=== PATIENT | female | born 1990 | race Caucasian/White ===

== ENCOUNTER 2018-07-24 15:23 | Emergency (ER) | payer OTHER ==
[~2018-07-24] VITALS: Ht 160 cm; Wt 77.1 kg
[2018-07-24 15:35] VITALS: BP 133/75
--- NOTE | 2018-07-24 15:41 | NUR ---
28 Y FEMALE BIB SELF C/O ITCHING ALL OVER THE BODY SINCE YESTERDAY MORNING. DESCRIBES THE FEELING PINS AND NEEDLES. RASHES SHOW UP AFTER SCRATHING. DENIES PAIN. DENIES ANY ABNORMAL FOOD OR MEDICATIONS. [id number]. VSS AT THIS TIME. BED IS DOWN, LOCKED, BED RAIL X 1, ERMD TO SEE PT. PMH- NONE
--- NOTE | 2018-07-24 15:43 | NUR ---
DR VERDUZCO AT BEDSIDE
[2018-07-24] MEDS ORDERED: predniSONE 20 MG TAB PO ONE (15:55)
[2018-07-24 16:13] VITALS: BP 129/71
--- NOTE | 2018-07-24 16:13 | NUR ---
Patient discharged with v/s stable. Written and verbal after care instructions given and explained. Patient alert, oriented and verbalized understanding of instructions. Ambulatory with steady gait. All questions addressed prior to discharge. ID band removed. Patient advised to follow up with PMD. Rx of PREDNISONE, CLARITIN, DIPHENHYDRAMINE HYDROCHLORIDE given. Patient educated on indication of medication including possible reaction and side effects. Opportunity to ask questions provided and answered.
== END 2018-07-24 16:13 | disposition home or self-care (01) ==
LOC: MED 15:23
DX: T78.40XA Allergy, unspecified, initial encounter (principal); X58.XXXA Exposure to other specified factors, initial encounter
CPT/HCPCS: 99283; J7512